=== PATIENT | male | born 1955 | race Caucasian/White ===

== ENCOUNTER → 2019-12-28 13:27 | Outpatient (BNVA) | payer OTHER, SELFPAY | PROVIDERS: PCP Internal Medicine; Visit Provider Urology | DX: N40.1 Benign prostatic hyperplasia with lower urinary tract symptoms (principal); N13.8 Other obstructive and reflux uropathy | CPT/HCPCS: 51798; 99024 ==

== ENCOUNTER → 2020-01-09 13:10 | Outpatient (BNVA) | payer OTHER, SELFPAY | PROVIDERS: PCP Internal Medicine; Referring Provider Internal Medicine; Visit Provider Physician Assistant | DX: Z76.89 Persons encountering health services in other specified circumstances (principal) ==

== ENCOUNTER 2020-08-27 13:25 | Outpatient (REF) | payer MEDICARE, SELFPAY ==
[2020-08-27 14:30] LABS: Mean Corpuscular HGB Conc 34.1 g/dl (31.0-36.0); Mean Corpuscular Hemoglobin 30.5 pg (27.0-33.0); Mean Corpuscular Volume 89.4 fL (80-98); Mean Platelet Volume 10.1 fL (9.4-12.4); Platelet Count 193 X10*3/uL (160-400); Red Blood Count 4.92 X10*6/uL (4.60-5.80); Red Cell Distribution Width 12.6 % (11.0-16.0); White Blood Count 7.3 X10*3/uL (4.8-10.8)
[2020-08-27 15:02] LABS: Alanine Aminotransferase 22 U/L (0-40); Albumin Level 4.4 g/dL (3.5-5.0); Alkaline Phosphatase 78 U/L (39-117); Anion Gap 14 (12-20); Aspartate Amino Transferase 22 U/L (5-37); Bilirubin Direct 0.2 mg/dL (0.0-0.5); Bilirubin Total 0.7 mg/dL (0.0-1.0); Blood Urea Nitrogen 19 mg/dL (9-16); Calcium 9.1 mg/dL (8.4-10.2); Carbon Dioxide 25 mmol/L (22-29); Chloride 105 mmol/L (96-108); Cholesterol 224 mg/dL; Estimated Glomerular Filt Rate > 60; Glucose Random 98 mg/dL (60-115); HDL Cholesterol 43 mg/dL; LDL Cholesterol Calculated 146 mg/dl; Potassium 4.6 mmol/L (3.3-5.1); Sodium 139 mmol/L (135-145); Total Protein 7.4 g/dL (6.5-8.0); Triglycerides 177 mg/dL
[2020-08-27 15:14] LABS: Glucose Urine UA NEG (NEG); Leukocyte Esterase Urine NEG (NEG); Nitrite Urine NEG (NEG); PH 5.5 (5.0-8.0); Specific Gravity - Urine >= 1.030 (1.005-1.025); Urine Blood NEG (NEG); Urine Ketones NEG (NEG); Urine Protein NEG (NEG-TRACE)
[2020-08-27 15:22] LABS: Appearance Urine CLEAR; Color Urine YELLOW
[2020-08-27 15:24] LABS: Prostate Specific Antigen Scr 3.52 ng/mL (<0.05-4.0); Thyroid Stimulating Hormone 1.52 uIU/mL (0.32-4.0)
== END 2020-08-27 13:26 | disposition home or self-care (01) ==
LOC: HO.LAB 13:25
PROVIDERS: PCP Internal Medicine; Visit Provider Internal Medicine
DX: Z12.5 Encounter for screening for malignant neoplasm of prostate (principal); N40.1 Benign prostatic hyperplasia with lower urinary tract symptoms; N13.8 Other obstructive and reflux uropathy; K21.9 Gastro-esophageal reflux disease without esophagitis; F41.9 Anxiety disorder, unspecified
CPT/HCPCS: 36415; 80048; 80061; 80076; 81003; 84153; 84443; 85027

== ENCOUNTER 2020-10-11 08:48 | Outpatient (REF) | payer MEDICARE, SELFPAY ==
[2020-10-11 11:04] LABS: PSA,Total (Free>4and<10) 2.77 ng/mL (0.00-4.00)
== END 2020-10-11 08:49 | disposition home or self-care (01) ==
LOC: HO.LAB 08:48
PROVIDERS: PCP Internal Medicine; Visit Provider Urology
DX: Z12.5 Encounter for screening for malignant neoplasm of prostate (principal); N13.8 Other obstructive and reflux uropathy; N40.1 Benign prostatic hyperplasia with lower urinary tract symptoms
CPT/HCPCS: 36415; 84153

== ENCOUNTER → 2020-10-17 15:28 | Outpatient (BNVA) | payer MEDICARE, SELFPAY | PROVIDERS: Visit Provider Urology | DX: N40.1 Benign prostatic hyperplasia with lower urinary tract symptoms (principal); N13.8 Other obstructive and reflux uropathy; R39.15 Urgency of urination | CPT/HCPCS: 99212 ==

== ENCOUNTER → 2020-11-26 14:59 | Outpatient (BNVA) | payer MEDICARE, SELFPAY | PROVIDERS: PCP Internal Medicine; Visit Provider Urology | DX: N40.1 Benign prostatic hyperplasia with lower urinary tract symptoms (principal); N13.8 Other obstructive and reflux uropathy; N32.0 Bladder-neck obstruction | CPT/HCPCS: 52000; 99212 ==

== ENCOUNTER 2021-01-20 05:56 | Day surgery (SDC) | payer MEDICARE, SELFPAY ==
[2021-01-13 15:52] VITALS: BMI 35.5
--- NOTE | 2021-01-17 09:05 | HO.ANESPROP2 ---
Documented by User: Shara Pino NP 01/17/21 09:06 HPI - Anesthesia Eval Consult details Narrative: 65yo M for Laser Ablation Prostate w/Green Light PMFSH Active Problems Active Problems: All Active Problems (Updated 11/26/20 @ 15:42 by Denis Shields MD) BPH with obstruction/lower urinary tract symptoms (Acute) Encounter for screening colonoscopy (Acute) Urinary urgency (Acute) Bladder neck contracture (Acute) GERD (gastroesophageal reflux disease) (Acute) Anxiety (Acute) Past Medical History Medical History Anxiety GERD (gastroesophageal reflux disease) History of elevated PSA Family History Family History Father No problems noted. Mother No problems noted. Other No family history of colorectal cancer Surgical History Surgical History History of biopsy of bladder Hx of cystoscopy Social History Social History Household Members: Family Housing: House Alcohol intake: current Alcohol intake frequency: a few times a month Patient Tobacco Use Status: Former Tobacco user Quit Date: Use of substances other than those prescribed or required for medical reasons: No Are you DNR?: No Advance Directives: No Advance Directives Information Provided: Yes Advance Directives on File: No Current occupational status: retired Meds Allergies Allergy/AdvReac Type Severity Reaction Status Date / Time No Known Allergies Allergy Verified 01/20/21 07:39 Home Medications Medication Instructions Recorded Confirmed Last Taken Type aspirin 81 mg tablet,delayed 81 mg PO DAILY 01/09/20 01/13/21 01/09/21 History release Fish Oil 01/13/21 01/09/21 History [id number] 1 tab PO DAILY 01/13/21 01/13/21 Unknown History tablet (Multivitamin 50 Plus) Exam Exam Date and Time: January 17, 2021 0905 Height,Weight and Vital Signs: Height 5 ft 6 in Weight 99.79 kg Pertinent Lab Results Pertinent Lab Results: Laboratory Tests 08/27/20 08/27/20 13:53 13:53 WBC 7.3 Hgb 15.0 Hct 44.0 Plt Count 193 Sodium 139 Potassium 4.6 Chloride 105 Carbon Dioxide 25 BUN 19 H Creatinine 0.79 Assessment and Plan Assessment Anesthesia Assessment: Chart Reviewed Documented by User: Kaye Vazquez MD 01/20/21 08:51 PMFSH Past Medical History Medical History Anxiety GERD (gastroesophageal reflux disease) History of elevated PSA Family History Family History Father No problems noted. Mother No problems noted. Other No family history of colorectal cancer Family history of problems with anesthesia: No Surgical History Surgical History History of biopsy of bladder Hx of cystoscopy History of Problems with Anesthesia: No Social History Social History Household Members: Family Housing: House Alcohol intake: current Alcohol intake frequency: a few times a month Patient Tobacco Use Status: Former Tobacco user Quit Date: Use of substances other than those prescribed or required for medical reasons: No Are you DNR?: No Advance Directives: No Advance Directives Information Provided: Yes Advance Directives on File: No Current occupational status: retired Meds Allergies Allergy/AdvReac Type Severity Reaction Status Date / Time No Known Allergies Allergy Verified 01/20/21 07:39 Home Medications Medication Instructions Recorded Confirmed Last Taken Type aspirin 81 mg tablet,delayed 81 mg PO DAILY 01/09/20 01/13/21 01/09/21 History release Fish Oil 01/13/21 01/09/21 History [id number]-szptjabu-[id number] 1 tab PO DAILY 01/13/21 01/13/21 Unknown History tablet (Multivitamin 50 Plus) Exam Height,Weight and Vital Signs: Height 5 ft 6 in Weight 99.79 kg Vital Signs Temp Pulse Resp BP Pulse Ox 01/20/21 07:44 97.9 F 62 16 171/97 H 98 Airway Mallampati Class: II TM Dist: >3cm Neck ROM: Full Denture: Upper and Lower Heart: RRR Lungs: CTAB Assessment and Plan Assessment Anesthesia Assessment: Anesthesia Plan Discussed Final Anesthetic Review Family History of Problems with Anesthesia: No History of Problems with Anesthesia: No NPO: Yes ASA Class: II Final Preanesthetic Review: No Changes in Pt Med Stat, Meds/Allgs Chart Reviewed, Consent Obtained/Reviewed and Anes Risks/Benef Reviewed Patient Risk: Low Procedure Risk: Low Assessment/Block/Sedation in SS: Assess/Block/Sedation-SS Anesthetic Plan Anesthetic Plan: GA Disposition: Standard PACU
[2021-01-20] VITALS (11 sets, daily range): BP systolic 115–171; BP diastolic 63–97; PULSE 52–109; RESP 16–18; TEMP 36.1–36.6; O2SAT 97–100
--- NOTE | 2021-01-20 | ECG_ITS ---
Test Reason : paf Blood Pressure : / mmHG Vent. Rate : 053 BPM Atrial Rate : 053 BPM P-R Int : 190 ms QRS Dur : 084 ms QT Int : 448 ms P-R-T Axes : 000 185 161 degrees QTc Int : 420 ms Suspect limb lead reversal, interpretation assumes no reversal Sinus bradycardia Lateral infarct , age undetermined ST & T wave abnormality, consider inferior ischemia Abnormal ECG When compared with ECG of 20-JAN-2021 10:13, Sinus rhythm has replaced Atrial fibrillation Vent. rate has decreased BY 26 BPM Questionable change in QRS axis Referred By: Kaye Vazquez Electronically Signed By:
--- NOTE | 2021-01-20 | ECG_ITS ---
Test Reason : ?afib Blood Pressure : / mmHG Vent. Rate : 079 BPM Atrial Rate : 000 BPM P-R Int : 000 ms QRS Dur : 086 ms QT Int : 384 ms P-R-T Axes : 000 014 015 degrees QTc Int : 440 ms Atrial fibrillation Left axis deviation Abnormal ECG No previous ECGs available Referred By: Kaye Vazquez Electronically Signed By:YENIFER CROCKER MD
[2021-01-20] MEDS: Lactated Ringers 1,000 ML 100 ML IVCONT (07:58)
--- NOTE | 2021-01-20 08:02 | MHC.SHP ---
Pre-Procedural Eval Section A Date of Service: 01/20/21 Section B Chief Complaint: benign prostatic hyperplasia Details of Present Illness: green light laser prostate Relevant Family History (Specify if Yes): No Relevant Social History: None Present Medications: see Short Stay Collaborative assessment Medical History: No relevant PMH History of Previous Operations: No relevant previous surgery Allergies: Allergies Allergy/AdvReac Type Severity Reaction Status Date / Time No Known Allergies Allergy Verified 01/20/21 07:39 Review of Systems Sugical H&P ROS: Negative: Constitution, Cardiovascular, Respiratory, Neurological, Psychiatric, Hem-Onc, Allergic/Immunologic, Gastrointestinal, Genitourinary, Musculoskeletal, Integumentary, Endocrine and Eyes/Ears/Nose/Throat Exam Surgical H&P Exam: Normal: HEENT, Normal: Heart, Normal: Lungs, Normal: Extremities, Normal: Abdomen, Normal: Skin and Normal: Neurological Plan Diagnosis/Plan: Unchanged (greenlight laser prostate) I have reviewed the history and physical and performed a pertinent physical examination on my patient. No changes have occurred unless specified.
[2021-01-20] MEDS: levoFLOXacin/D5W 500 MG/100 ML PIGGYBACK 100 MG IV (08:09)
--- NOTE | 2021-01-20 09:04 | P.OP_ITS ---
Operative Note Operative Note Date of Service: 01/20/21 Narrative: PreOperative Diagnosis: Bladder outlet obstruction recurrence Post Operative Diagnosis: Bladder outlet obstruction Procedure: GreenLight laser enucleation of the prostate Surgeon: Dr Denis Shields Anesthesia: General Indications for procedure: History of bladder outlet obstruction. Prior prostate procedure. Has tightened bladder neck with ureg/frequency. Suggest redo prostate procedure Procedure After informed consent was verified the patient was brought to the operating room and placed in a supine position. Anesthesia was administered per protocol. Patient was placed in modified dorsal lithotomy position and prepped and draped in a sterile fashion. Safety pause time-out was confirmed. Antibiotics have been given. Twenty-four [place] laser cystoscope was inserted per urethra. No abnormalities found the anterior posterior urethra. A TURP defect visible. Had tightening of bladder neck with elevated medial area. Using a GreenLight laser settings of 80 w incisions were made at the 5 and 7 o'clock position. Turning the laser to 120 the area in between the 5 and 7 o'clock position was opened. The fibrous scarring was divided. Lateral lobes were already effectively cleared. Care was taken to remain away from both ureteric orifices. When this was completed debris and pieces of prostate removed from the bladder. Both ureteric orifices were reviewed again in shown to be patent in away from any areas of energy damage. The apical area was reviewed in any stray ooze was controlled. A 22 [place] 30 cc balloon David catheter was placed over stylet into the bladder. Clear efflux was obtained. 30 cc was placed in the balloon and gentle traction was placed. A snap was used to hold tension once the patient will be moved and transported. Once transportation its finish this novel be removed. A belladonna and opiate suppository was placed for postprocedure pain management. He tolerated procedure well was extubated in the operating and transferred in a stable condition to the recovery area. Total of 12,000 color joule energy used Pathology: Prostate tissue Drains: David catheter
[2021-01-20] MEDS: Phenazopyridine HCL 100 MG TABLET PO (10:16)
[2021-01-20] MEDS: Acetaminophen 325 MG TABLET 650 MG PO (10:16)
[2021-01-20] MEDS: oxyCODONE HCl Immed Release 5 MG TABLET PO (10:17)
--- NOTE | 2021-01-20 10:24 | P.CONCA_ITS ---
History of Present Illness History of Present Illness Date of Service: 01/20/21 Chief complaint: benign prostatic hyperplasia Narrative: This is a cardiology consultation regarding atrial fibrillation. Patient apparently had laser surgery and prostate earlier today. While going to surgical he was apparently in sinus rhythm but then converted to atrial fibrillation. Rate was slightly fast. Patient still does not have any symptoms whatsoever. He also denies any cardiac symptoms. While I am actually interviewing him, he is back in normal sinus rhythm. He states that he can do all aspects of physical activity without any limitations whatsoever and has never had cardiac symptoms of any type. Also no coronary disease or myocardial infarction or cardiomyopathy. Review of Systems Review of Systems: Yes all other systems are reviewed and are negative Cardiovascular: Cardiovascular: Reports as per HPI, Reports no additional cardiovascular complaints, Denies acrocyanosis, Denies cool extremities, Denies painful fingertips, Denies chest pain, Denies chest pain at rest, Denies diaphoresis, Denies syncope, Denies irregular heart rhythm, Denies claudication, Denies leg edema, Denies lightheadedness, Denies palpitations and Denies dyspnea Respiratory: Respiratory: Denies dyspnea Neurologic: Denies syncope Endocrine: Endocrine: Denies palpitations PMFSH Past Medical History Medical History Anxiety GERD (gastroesophageal reflux disease) History of elevated PSA Family History Family History Father No problems noted. Mother No problems noted. Other No family history of colorectal cancer Surgical History Surgical History History of biopsy of bladder Hx of cystoscopy Social History Social History Household Members: Family Housing: House Alcohol intake: current Alcohol intake frequency: a few times a month Patient Tobacco Use Status: Former Tobacco user Quit Date: Use of substances other than those prescribed or required for medical reasons: No Are you DNR?: No Advance Directives: No Advance Directives Information Provided: Yes Advance Directives on File: No Current occupational status: retired Meds Allergies Allergy/AdvReac Type Severity Reaction Status Date / Time No Known Allergies Allergy Verified 01/20/21 07:39 Active Medications: Current Medications Fentanyl (Fentanyl Citrate/Pf 100 Mcg/2 Ml Vial) 25 mcg IVPUSH Q5M PRN; Protocol PRN Reason: Pain, Moderate (Pain Scale 4-6 Lactated Ringer's (Lr) 1,000 mls @ 100 mls/hr IVCONT .Q10H SHANEL Last Admin: 01/20/21 07:58 Dose: 100 mls/hr Documented by: Ondansetron HCl (Ondansetron Hcl 4 Mg/2 Ml Vial) 4 mg IVPUSH ONCE PRN PRN Reason: Nausea and Vomiting Oxycodone HCl (Oxycodone Hcl Immed Release 5 Mg Tablet) 10 mg PO ONCE PRN PRN Reason: Pain, Severe (Pain Scale 7-10) Tramadol HCl (Tramadol Hcl 50 Mg Tablet) 50 mg PO Q6H PRN PRN Reason: Pain, Moderate (Pain Scale 4-6 Home Medications Medication Instructions Recorded Confirmed Last Taken Type aspirin 81 mg tablet,delayed 81 mg PO DAILY 01/09/20 01/13/21 01/09/21 History release Fish Oil 01/13/21 01/09/21 History [id number]-jlvevyqh-[id number] 1 tab PO DAILY 01/13/21 01/13/21 Unknown History tablet (Multivitamin 50 Plus) Physical Exam Vital Signs: Vital Signs: Last Vital Signs Temp 97 F 01/20/21 09:06 Pulse 93 01/20/21 10:06 Resp 18 01/20/21 10:06 BP 115/97 H 01/20/21 10:06 Pulse Ox 97 01/20/21 10:06 Body Mass Index 35.5 Const: General: cooperative and no acute distress HENMT: Other: Unremarkable Neck: Neck: Yes normal visual inspection Chest: Chest palpation & inspection: normal inspection of the chest Resp: Auscultation: clear to auscultation bilaterally, no crackles and no wheezes Cardio: Jugular venous distension: no JVD Palpation: normal PMI Heart sounds: S1 normal heart sound present, S2 normal heart sound present, no gallops, no murmurs and no rubs GI: Palpation (GI): Soft to palpation Back/Spine/Pelvis: Other: unremarkable Skin: General skin exam: no rashes or lesions noted Neuro: Cranial nerves: Yes Other cranial nerve findings present Extrem: General: Yes no clubbing, cyanosis or edema Psych: Mental Status: other Results ECG Interpretation: EKG today shows atrial flutter with variable block. Telemetry at this time shows normal sinus rhythm at around 60/Min. EKG strips earlier also shows sinus rhythm. Assessment and Plan (1) Atrial flutter, paroxysmal: Status: Acute He is back in normal sinus rhythm. Rhythm was suggestive of atrial flut ter with variable block. No specific medications at this time. Total duration of the arrhythmia was less than an hour. May be discharged home. Will arrange follow-up in the office. Procedures Date of Service Date of Service: 01/20/21
== END 2021-01-20 11:38 | disposition home or self-care (01) ==
PROVIDERS: PCP Nurse Practitioner Family; Visit Provider Urology
PROC: (CPT 52648; principal; 2021-01-20 08:00)
DX: N40.1 Benign prostatic hyperplasia with lower urinary tract symptoms (principal); N32.0 Bladder-neck obstruction; R35.0 Frequency of micturition; F41.9 Anxiety disorder, unspecified; K21.9 Gastro-esophageal reflux disease without esophagitis; Z87.891 Personal history of nicotine dependence
CPT/HCPCS: 52648; 93005; J1100; J1170; J1956; J2405; J3010

== ENCOUNTER → 2021-01-22 09:26 | Outpatient (BNVA) | payer MEDICARE, SELFPAY | PROVIDERS: PCP Nurse Practitioner Family; Visit Provider Urology | DX: N32.0 Bladder-neck obstruction (principal); N40.1 Benign prostatic hyperplasia with lower urinary tract symptoms; N13.8 Other obstructive and reflux uropathy; R97.20 Elevated prostate specific antigen [PSA]; F41.9 Anxiety disorder, unspecified; Z87.891 Personal history of nicotine dependence | CPT/HCPCS: 51700; 51798 ==

== ENCOUNTER → 2021-02-26 09:20 | Outpatient (REF) | payer MEDICARE, SELFPAY ==
--- NOTE | 2021-02-26 09:40 | HM_ITS ---
Conclusion : 1. Patient was monitored for a total of 3 days and 2 hours 2. Baseline rhythm is NSR with average HR of 65 bpm 3. Rare ectopics noted 4. No significant pauses or bradycardia noted 5. No patient reported events MTDD
--- NOTE | 2021-02-26 09:40 | CA_ITS ---
Transthoracic Echocardiogram Patient (Last, First, Middle): Cally Fonseca, Gender: Male Date of : 1955 Age: 65 Procedure Date: 02/26/2021 Procedure Type: Transthoracic Echocardiogram Location: OP Height: 172.72 cm Weight: 97.07 kg BSA: 2.10 m2 Heart Rate: bpm BP: 133 / 70 mmHg Packaging Sales Representative: GEORGETTE Candelario MD: Diego Alaniz MD Water Safety Teacher: Juan Pablo Whitney MD Symptoms: I48.92 - Unspecified atrial flutter Study Quality: Fair ECG Rhythm: Sinus Conclusions: - 1. Normal LV systolic function with impaired relaxation filling pattern 2. Mildly dilated left atrium 3. Normal cardiac valvular Doppler 4. Normal RV systolic pressure 5. Mildly dilated ascending aorta 6. No pericardial effusion Findings Left Ventricle Normal left ventricular size, thickness, and systolic function. The visually estimated ejection fraction is between 60-65%. Spectral Doppler is indicative of an impaired relaxation filling pattern. E/E prime ratio is between 8 and 15 consistent with indeterminate filling pressures. Right Ventricle Mildly increased right ventricular cavity size. There is normal right ventricular systolic function. Atria The left atrium is mildly dilated. Interatrial shunt cannot be excluded. The right atrium is likely dilated. Aortic Valve There is mild calcification of the aortic valve. There is no aortic valve stenosis. There is trace (trivial) aortic valve regurgitation. Mitral Valve There is mild anterior and posterior mitral leaflet thickening. There is mild mitral annular calcification. There is trace mitral valve regurgitation. There is no mitral valve stenosis. Pulmonic Valve The pulmonic valve was not well visualized. Tricuspid Valve Likely normal tricuspid valve structure and function. There is mild tricuspid valve regurgitation. The right ventricular systolic pressure is normal. The right ventricular systolic pressure is 18 mmHg. Normal right atrial pressure. There is no evidence of pulmonary hypertension. Great Vessels The pulmonary artery was not well visualized. There is mild dilatation of the ascending aorta measuring 4.20 cm. Venous The inferior vena cava is normal in size and collapses greater than 50% with inspiration. Pericardium/Pleural There is no evidence of pericardial effusion. Prior Study Comparison No prior study available for comparison. Measurements 2D Linear Measurements IVSd: 1.00 0.6-0.9/0.6-1.0 cm LVIDd: 5.03 3.9-5.3/4.2-5.9 cm LVIDd Index: 2.40 2.4-3.2/2.2-3.1 cm/m2 LVIDs: 3.66 2.0-3.6 cm LVPWd: 1.01 0.7-1.1 cm Ao Root: 4.10 2.1-3.5 cm LA Diam: 3.80 2.7-3.8/3.0-4.0 cm LAIDs Index: 1.81 1.5-2.3 cm/m2 LV Mass: 230.52 67-162/88-224 g LV Mass Index: 109.77 43-95/49-115 g/m2 LVOT Diam: 2.00 3.0+(-)1.3 cm 2D Systolic Function EF 4C: 58.00 >55% EF 2C: 61.90 >55% EF BiP: 60.60 >55% Mitral Valve MV Pk E: 0.62 MV PK A: 0.64 MV Decel Time: 301.00 E/A: 1.00 E'Lateral: 8.70 E'Medial: 6.85 E/E' Med: 9.00 E/E' Lat: 7.10 PHT: 88.00 MVA PHT: 2.50 Decel Sampson: 2.05 Aortic Valve AoV Pk Wally: 1.61 AoV Mn Wally: 1.03 AoV VTI: 0.32 AoV Pk Grad: 10.00 Aov Mn Grad: 5.00 LYNNE Cont.VTI: 2.63 LVOT LVOT Pk Wally: 1.25 LVOT Mn Wally: 0.85 LVOT VTI: 0.27 LVOT Pk Grad: 6.00 LVOT Mn Grad: 3.00 LVOT Diam: 2.00 LVOT Area: 3.14 Diastolic Function MV Pk E: 0.62 MV Pk A: 0.64 E/A: 1.00 E'Medial: 6.85 E/E' Med: 9.00 E' Laterial: 8.70 E/E' Lat: 7.10 Right Ventricle TAPSE (mm): 2.43 TVS' Wally: 14.60 Tricuspid Valve TR Pk Wally: 1.93 TR Pk Grad: 15.00 RA Press: 3.00 RVSP: 18.00 Great Vessels Aorta Ao Root-2D: 4.10 2.0-3.7 cm Ao Asc: 4.20 2.1-3.4 cm Ao Arch: 2.90 Updated in Other Vendor System with Status of Final Juan aPblo Whitney MD electronically signed on 02/27/2021 4:08:20 PM with status of Final
[2021-02-26 12:12] LABS: Prostate Specific Antigen 6.43 ng/mL (<0.05-4.0)
== END ==
LOC: HO.CARD 09:20
PROVIDERS: Absent Provider Urology; PCP Nurse Practitioner Family; Visit Provider Internal Medicine
DX: Z12.5 Encounter for screening for malignant neoplasm of prostate (principal); I48.92 Unspecified atrial flutter; N40.1 Benign prostatic hyperplasia with lower urinary tract symptoms; N13.8 Other obstructive and reflux uropathy
CPT/HCPCS: 36415; 84153; 93242; 93306

== ENCOUNTER → 2021-03-05 08:32 | Outpatient (BNVA) | payer MEDICARE, SELFPAY | PROVIDERS: PCP Nurse Practitioner Family; Visit Provider Urology | DX: N32.0 Bladder-neck obstruction (principal); R97.20 Elevated prostate specific antigen [PSA] | CPT/HCPCS: 99212; Q3014 ==

== ENCOUNTER 2021-08-18 11:10 | Outpatient (REF) | payer MEDICARE, SELFPAY ==
[2021-08-18 14:01] LABS: PSA,Total (Free>4and<10) 2.52 ng/mL (0.00-4.00)
== END 2021-08-18 11:11 | disposition home or self-care (01) ==
LOC: HO.LAB 11:10
PROVIDERS: Absent Provider Urology; PCP Nurse Practitioner Family; Referring Provider Nurse Practitioner Family; Visit Provider Internal Medicine
DX: Z12.5 Encounter for screening for malignant neoplasm of prostate (principal); R97.20 Elevated prostate specific antigen [PSA]; I48.92 Unspecified atrial flutter; I10 Essential (primary) hypertension; I77.810 Thoracic aortic ectasia
CPT/HCPCS: 36415; 84153; 99212

== ENCOUNTER → 2021-09-10 10:11 | Outpatient (BNVA) | payer MEDICARE, SELFPAY | PROVIDERS: PCP Nurse Practitioner Family; Visit Provider Urology | DX: N32.0 Bladder-neck obstruction (principal); R97.20 Elevated prostate specific antigen [PSA] | CPT/HCPCS: Q3014 ==